=== PATIENT | male | born 1980 | race Caucasian/White ===

== ENCOUNTER 2021-09-04 20:32 | Emergency (ER) | payer OTHER ==
[~2021-09-04] VITALS: Ht 175.3 cm; Wt 86.5 kg
--- NOTE | 2021-09-04 21:11 | PHYS DOC ---
Adult General Chief Complaint Chief Complaint: ABDOMINAL PAIN HPI HPI Patient is a 40-year-old male who presents with a chief complaint of acute onset right lower quadrant/right flank pain, sharp in nature, 7 out of 10 associated with nausea that started 2 hours before coming into the emergency department. States he had anything like this before. Denies any recent travels, traumas, illnesses, fevers, chest pain, shortness of breath, dysuria, hematuria, blood in the stool or diarrhea. States he had a fever at home 103, and took some Tylenol just before coming. Denies any known ill contacts. Review of Systems Review of Systems Review of systems otherwise unremarkable except noted in HPI Physical Exam Physical Exam Constitutional: Well developed, well nourished, no acute distress, non-toxic appearance. [] HENT: Normocephalic, atraumatic, oropharynx moist, Eyes: conjunctiva normal, no discharge. [] Neck: Normal range of motion, no tenderness, supple, no stridor. [] Cardiovascular:Heart rate regular rhythm, no murmur [] Lungs & Thorax: Bilateral breath sounds clear to auscultation [] Abdomen: soft, right lower quadrant tenderness with no rebound or guarding, no masses, no pulsatile masses. [] Skin: Warm, dry, no erythema, no rash. [] Back: no CVA tenderness. [] Extremities: No tenderness, no cyanosis, no clubbing, ROM intact, no edema. [] Neurologic: Alert and oriented X 3, normal motor function, normal sensory function, no focal deficits noted. [] Psychologic: Affect normal, judgement normal, mood normal. [] EKG EKG [] Radiology/Procedures Radiology/Procedures [] Heart Score C/O Chest Pain: No Risk Factors: Risk Factors: DM, Current or recent (<one month) smoker, HTN, HLP, family history of CAD, obesity. Risk Scores: Risk Factors: DM, Current or recent (<one month) smoker, HTN, HLP, family history of CAD, obesity. Course & Med Decision Making Course & Med Decision Making Patient is a 40-year-old male who presents with right flank and right lower quadrant pain associated with nausea that started 2 hours ago Vital signs notable for sinus tachycardia and hypertension. Physical exam noted above. Placed on the monitor with IV access established and given pain medicine Urinalysis nonconcerning. CT with a small appendicolith but no signs of appendicitis. Symptoms resolved with medication. Discussed all findings with patient Advised to follow-up in the morning with primary care physician. Discussed symptom control at home. Gave return precautions to the ED peer Patient grateful, verbalized understanding and agreed with plan of discharge [] Dragon Disclaimer Dragon Disclaimer This electronic medical record was generated, in whole or in part, using a voice recognition dictation system. Departure Departure: Impression: Primary Impression: Abdominal pain Disposition: HOME / SELF CARE / HOMELESS Condition: STABLE Referrals: DONTA BOJORQUEZ DO (PCP) Patient Instructions: Abdominal Pain (Nonspecific) Additional Instructions: Thank you for coming into the emergency department tonight and allowing us to take care of you. Please read all the attached information carefully to go over things we discussed. Please continue Tylenol, ibuprofen and Benadryl at home as needed for the next couple of days. Your urinalysis was not concerning as we discussed. In your CT scan was unremarkable outside of a tiny stone inside your appendix but no signs of appendicitis. Please follow-up in the morning with your primary care physician update on your ED visit and set up a follow-up appointment as soon as you can for reevaluation. Please come back with new or concerning symptoms as discussed. KARYNA FUNEZ MD Sep 04, 2021 21:11
--- NOTE | 2021-09-04 21:38 | RAD ---
Examination: CT of the abdomen pelvis without contrast HISTORY: History of right flank pain COMPARISON: None TECHNIQUE: Axial CT images of the abdomen pelvis were performed without contrast. Coronal and sagitta l reformats are performed Exposure: One or more of the following individualized dose reduction techniques were utilized for thi s examination: 1. Automated exposure control 2. Adjustment of the mA and/or kV according to patient size 3. Use of iterative reconstruction technique FINDINGS: Mild bibasilar lung atelectasis. No evidence of free air identified in the abdomen. The visualized no ncontrasted liver, spleen, adrenals grossly appears unremarkable. The gallbladder is mildly distended . The stomach is mildly distended . The visualized pancreas grossly appears unremarkable. The small b owel is nondilated. Small appendicolith identified in the appendix. No evidence of inflammatory fat s tranding stranding identified about the appendix. Feces and gas identified in the colon. Urinary bladder is mildly distended. The left kidney appears small. No evidence of hydronephrosis. L5-S1 posterior spinal fusion with bila teral screws. 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 IMPRESSION: 1. No acute intra-abdominal findings. 2. Small appendicolith identified in the appendix without evidence of appendicitis. 3. Small left kidney. 4. L5-S1 posterior spinal fusion with bilateral screws. Spondylolysis L5 on S1 with 1 cm anterolisth esis of L5 on S1. Electronically signed by: Nik Wynn MD (09/04/2021 9:36 PM) [id number]
[2021-09-04 21:46] LABS: CLARITY,URINE CLEAR; COLOR,URINE YELLOW; GLUCOSE,URINE NEG (NEG)
[2021-09-04 21:47] LABS: BACTERIA,URINE 0 /HPF (0-FEW); NITRITE,URINE NEG (NEG); RBC,URINE 0 /HPF (0-2); UROBILINOGEN,URINE 0.2 mg/dL (0.2 mg/dL); WBC,URINE 0 /HPF (0-4)
[2021-09-04 22:10] VITALS: BP 124/80
== END 2021-09-04 22:13 | disposition home or self-care (01) ==
LOC: ER 20:32
DX: R10.31 Right lower quadrant pain (principal); R11.0 Nausea
CPT/HCPCS: 74176; 81001; 96372; 99284; J3010